=== PATIENT | female | born 1960 | race Caucasian/White ===

== ENCOUNTER 2018-03-03 12:37 | Inpatient (IN) | payer OTHER ==
[~2018-03-03] VITALS: Ht 167.6 cm; Wt 88.5 kg
[2018-03-03] MEDS ORDERED: ONDANSETRON HCL/PF 4 MG/2 ML VIAL ONE (12:48)
[2018-03-03] MEDS ORDERED: ONDANSETRON HCL/PF 4 MG/2 ML VIAL IVP ONE (13:00)
[2018-03-03] MEDS ORDERED: IV NS 0.9% 1,000 ML BAG IV ONE ×2 (13:00→14:00)
[2018-03-03 13:15] LABS: EOSINOPHILS % (AUTO) 0.5 % (0.0-6.0); HEMATOCRIT 38 % (33-45); HEMOGLOBIN 13.2 g/dL (11.5-14.8); LYMPHOCYTES # (AUTO) 0.5 /CMM (0.8-4.8); LYMPHOCYTES % (AUTO) 64.1 % (20.0-44.0); MEAN CORPUSCULAR HGB CONC 35 g/dl (31.0-36.0); MEAN CORPUSCULAR VOLUME 80 fL (82-100); MONOCYTES % (AUTO) 0.7 % (2.0-12.0); NEUTROPHILS # (AUTO) 0.3 /CMM (1.8-8.9); NEUTROPHILS % (AUTO) 33.7 % (43.0-81.0); PLATELET COUNT (AUTO) 195 /CMM (150-450); RDW COEFFICIENT OF VARIATION 12.3 (11.5-15.0); RED BLOOD CELL COUNT(AUTO) 4.77 MIL/uL (4.0-5.2)
[2018-03-03 13:23] LABS: WHITE BLOOD COUNT (AUTO) 0.8 K/uL (4.3-11.0)
[2018-03-03 13:32] LABS: CARBON DIOXIDE 22 mmol/L (21-32); CHLORIDE 96 mmol/L (98-107); CREATININE 1.3 mg/dL (0.6-1.3); GLUCOSE 156 mg/dL (74-106); POTASSIUM 3.3 mmol/L (3.5-5.1); SODIUM SERUM 132 mmol/L (136-145); UREA NITROGEN, BLOOD 13 mg/dL (7-18)
[2018-03-03 13:38] LABS: ALANINE AMINOTRANSFERASE 72 U/L (12-78); ALBUMIN 3.9 g/dL (3.4-5.0); ALKALINE PHOSPHATASE 70 U/L (46-116); ASPARTATE AMINOTRANSFERASE 49 U/L (15-37); BILIRUBIN,DIRECT 0.2 mg/dL (0.0-0.2); BILIRUBIN,TOTAL 0.9 mg/dL (0.2-1.0); LIPASE 104 U/L (73-393); TOTAL PROTEIN, SERUM 8.4 g/dL (6.4-8.2)
[2018-03-03 13:41] LABS: TROPONIN I < 0.017 ng/mL (0.00-0.056)
--- NOTE | 2018-03-03 13:59 | NUR ---
CALLED DR CHLOE BROOKS [facility] PT'S ONCOLOGIST [phone]
[2018-03-03] MEDS ORDERED: MEROPENEM 1 G in IV NS 0.9% 100 ML IV ONE (14:00)
[2018-03-03] MEDS ORDERED: VANCOMYCIN 1 GM in IV D5W 250 ML IV ONE (14:00)
--- NOTE | 2018-03-03 14:13 | NUR ---
SENT A MESSAGE TO DR DOUGLAS.
[2018-03-03 14:18] LABS: EOSINOPHILS % (MANUAL) 2 % (0-4); LYMPHOCYTES % (MANUAL) 70 % (16-48); NEUTROPHILS % (MANUAL) 28 (42-76)
--- NOTE | 2018-03-03 14:46 | NUR ---
PT IS ASSIGNED TO ICU RM#: [id number], PT IS DIAGNOSED WITH NEUTROPENIC FEVER/ DEHYDRATION, AND DR ODUGLAS IS THE ACCEPTING MD .
--- NOTE | 2018-03-03 14:57 | NUR ---
PER DR DOUGLAS, HE WANTS THE ICU BED DOWNGRADED TO MED SURG WITH REVERSE ISOLATION, AND THE NURSING POPCORN MACHINE OPERATOR WAS NOTIFIED
[2018-03-03] MEDS ORDERED: METO50TA7 PO (14:58)
[2018-03-03] MEDS ORDERED: LOSA1TAB39 PO (14:58)
[2018-03-03] MEDS ORDERED: AMLO10TA6 PO (14:58)
[2018-03-03] MEDS ORDERED: ONDA4TAB5 PO (14:58)
--- NOTE | 2018-03-03 15:00 | NUR ---
PORT ACCESSED: IV PATENT AND FLUSHING WELL.
--- NOTE | 2018-03-03 15:27 | NUR ---
NEW ROOM FOR PT IS JEMAL RM#: [id number]
[2018-03-03] MEDS ORDERED: D5W IV PRN (15:30)
[2018-03-03] MEDS ORDERED: ONDANSETRON HCL IV PRN (15:30)
[2018-03-03] MEDS: METOPROLOL SUCCINATE 50 MG TAB.SR.24H PO SCH (15:30)
[2018-03-03] MEDS ORDERED: HYDROCODONE/APAP 5/325MG 1 EACH TABLET PO ONE (15:30)
[2018-03-03] MEDS: PANTOPRAZOLE 40 MG VIAL IV SCH (15:30)
[2018-03-03] MEDS ORDERED: ACETAMINOPHEN ES 500 MG TABLET PO PRN (15:30)
[2018-03-03] MEDS ORDERED: LOPERAMIDE HCL (2 MG CAP) 2 MG CAPSULE PO ONE ×2 (16:00→22:00)
--- NOTE | 2018-03-03 16:12 | NUR ---
REPORT GIVEN TO CATHERINE SOLARES FOR [facility]
[2018-03-03 17:00] VITALS: BP 145/75
--- NOTE | 2018-03-03 17:00 | NUR ---
MS ACCOUNTS RECEIVABLE ASSOCIATE NOTE PATIENT CAME FROM HOME. CAME TO THE ER FOR NAUSEA AND DIARRHEAx3 DAYS, HAD FIRST ROUND OF CHEMOTHERAPY LAST Saturday02/24/[address] BROOKS OUTSIDE ONCOLOGIST. ALERT AND ORIENTED X4, NO PAIN AT THIS TIME BUT PATIENT STATES ABDOMINAL DISCOMFORT AND DOES NOT WANT PAIN MEDICATION AT THIS TIME. NO SOB OR DISTRESS NOTED. ABLE TO COMMUNICATE NEEDS. IV ON RIGHT WRIST 20G INTACT AND PATENT NO REDNESS OR SWELLING NOTED, RIGHT SIDE CHEST PORT-A-CATH. NO BLOOD PRESSURE ON RIGHT ARM DUE TO RIGHT LUMPECTOMY IN 2009. FULL CODE. REVERSE ISOLATION. AMBULATORY WITH NO SKIN ISSUES PRESENT. ALLERGY TO IODINE. WILL CONTINUE TO MONITOR THROUGHOUT SHIFT
[2018-03-03] MEDS ORDERED: FEE PK DOSING 1 MIN EA MC ONE (17:18)
[2018-03-03] MEDS: TBO-FILGRASTIM 480 MCG/0.8 ML ML SQ SCH (17:48)
--- NOTE | 2018-03-03 18:47 | NUR ---
MS RN CLOSING NOTE PATIENT RESTING COMFORTABLY AT THIS TIME. NO PAIN NOTED. NO SOB OR DISTRESS NOTED. CALL LIGHT WITHIN REACH AT ALL TIMES. SAFETY MEASURES IMPLEMENTED. ABLE TO COMMUNICATE NEEDS. IV AND PORT-A-CATH INTACT AND PATENT NO REDNESS OR SWELLING NOTED. ALL DUE MEDICATIONS GIVEN ORDERED. ALL NURSING CARE NEEDS ATTENDED TO NEEDED. LABS IN AM. REVERSE ISOLATION. WILL ENDORSE TO [employer]RIBUTION CLERK NURSE FOR [facility]
[2018-03-03 20:00] VITALS: BP 146/73
--- NOTE | 2018-03-03 20:00 | NUR ---
JEMAL RN NOTES RECEIVED BEDSIDE REPORT FROM AM NURSE. PATIENT IS A/O X4, HAD FIRST ROUND OF CHEMOTHERAPY LAST Saturday02/24/[address] BROOKS OUTSIDE ONCOLOGIST. NO PAIN AT THIS TIME BUT PATIENT STATES ABDOMINAL DISCOMFORT,NO SOB OR DISTRESS NOTED. ABLE TO COMMUNICATE NEEDS. IV ON RIGHT WRIST 20G INTACT AND PATENT NO REDNESS OR SWELLING NOTED, RIGHT SIDE CHEST PORT-A-CATH. NO BLOOD PRESSURE ON RIGHT ARM DUE TO RIGHT LUMPECTOMY IN 2009. FULL CODE. REVERSE ISOLATION. AMBULATORY WITH NO SKIN ISSUES PRESENT. ALLERGY TO IODINE. WILL CONTINUE TO MONITOR THROUGHOUT SHIFT.
[2018-03-03 21:00] VITALS: BP 146/73
--- NOTE | 2018-03-03 22:00 | NUR ---
JEMAL RN NOTES PATIENT IS COMPLAINING OF NAUSEA AND DIARRHEA. MEDICATIONS ARE ADMINISTERED IN TIMELY MANNERS AND COMFORT MEASURES ARE IMPLEMENTED. WILL CONT. TO MONITOR.
[2018-03-03] MEDS ORDERED: IV PREMIX D5 1/2NS + KCL 1,000 ML IV ONE (22:34)
[2018-03-03] MEDS: Potassium Chloride 20 MEQ in IV D5/0.45 NACL 1,000 ML IV PRN (22:44)
[2018-03-04] MEDS: VANCOMYCIN 1 GM in IV NS 0.9% 250 ML IV SCH ×2 (03:20→15:09)
[2018-03-04 04:00] VITALS: BP 118/67
[2018-03-04 05:00] VITALS: BP 118/67
[2018-03-04 06:20] LABS: BASOPHILS % (AUTO) 0.8 % (0.0-2.0); EOSINOPHILS % (AUTO) 1.6 % (0.0-6.0); HEMATOCRIT 32 % (33-45); HEMOGLOBIN 11.3 g/dL (11.5-14.8); LYMPHOCYTES # (AUTO) 0.6 /CMM (0.8-4.8); LYMPHOCYTES % (AUTO) 62.2 % (20.0-44.0); MEAN CORPUSCULAR HGB CONC 36 g/dl (31.0-36.0); MEAN CORPUSCULAR VOLUME 81 fL (82-100); MONOCYTES # (AUTO) 0.1 /CMM (0.1-1.30); MONOCYTES % (AUTO) 6.6 % (2.0-12.0); NEUTROPHILS # (AUTO) 0.3 /CMM (1.8-8.9); NEUTROPHILS % (AUTO) 28.8 % (43.0-81.0); PLATELET COUNT (AUTO) 148 /CMM (150-450); RED BLOOD CELL COUNT(AUTO) 3.91 MIL/uL (4.0-5.2)
[2018-03-04 06:28] LABS: CALCIUM, SERUM 8.3 mg/dL (8.5-10.1); CREATININE 0.9 mg/dL (0.6-1.3); POTASSIUM 3.6 mmol/L (3.5-5.1)
[2018-03-04 06:39] LABS: ALBUMIN 3.1 g/dL (3.4-5.0); BILIRUBIN,TOTAL 0.6 mg/dL (0.2-1.0); MAGNESIUM 1.8 mg/dL (1.8-2.4); TOTAL PROTEIN, SERUM 6.7 g/dL (6.4-8.2)
[2018-03-04 07:17] LABS: WHITE BLOOD COUNT (AUTO) 0.9 K/uL (4.3-11.0)
[2018-03-04 08:00] VITALS: BP 122/70
--- NOTE | 2018-03-04 08:00 | NUR ---
MS RN NOTES PATIENT IN BED RESTING NO SOB OR ACUTE DISTRESS NOTED. PATIENT ALERT, ORIENTED X4 IN BED RESTING. WITH PORT A CATH ACCESED ON RIGHT UPPER CHEST INTACT PATENT. RUNNING PRESCRIBED FLUIDS. BED IN LOW LOCKED POSITION. CALL LIGHT WITHIN REACH. WILL CONTINUE TO MONITOR.
[2018-03-04] MEDS: METOPROLOL SUCCINATE 50 MG TAB.SR.24H PO SCH (09:00)
[2018-03-04] MEDS ORDERED: MEROPENEM 1 G in IV NS 0.9% 100 ML IV SCH (09:00)
[2018-03-04] MEDS: PANTOPRAZOLE 40 MG VIAL IV SCH (09:00)
[2018-03-04] MEDS ORDERED: ONDANSETRON HCL/PF 4 MG/2 ML VIAL IVP PRN (09:30)
--- NOTE | 2018-03-04 09:30 | NUR ---
MS RN NOTES PATIENT SEEN AND EVALUATED BY DR. DOUGLAS STATES PATIENT NEEDS TO BE TRANSFERRED TO [facility] DUE TO INSURANCE PURPOSES. NOTED AND CARRIED OUT.
[2018-03-04] MEDS: Potassium Chloride 20 MEQ in IV D5/0.45 NACL 1,000 ML IV PRN (10:59)
[2018-03-04] MEDS ORDERED: AMLODIPINE BESYLATE 10 MG TABLET PO SCH (15:30)
[2018-03-04 16:00] VITALS: BP 140/71
[2018-03-04 16:15] VITALS: BP 140/71
[2018-03-04] MEDS: TBO-FILGRASTIM 480 MCG/0.8 ML ML SQ SCH (16:34)
--- NOTE | 2018-03-04 18:00 | NUR ---
MS RN NOTES PATIENT TRANSFERRED TO [facility] VIA AMBULANCE WITH EMT. PATIENT ALERT, ORIENTED X4. DENIES ANY PAIN OR DISCOMFORT. DISCHARGE PROTOCOL FOLLOWED. PATIENT SIGNED ALL PAPERS. DISCHARGE TEACHING PROVIDED VERBALIZED UNDERSTANDING. ALL BELONGINGS ACCOUNTED FOR, BELONGING LIST SIGNED. ALL DUE MEDICATIONS ADMINISTERED ORDERED. MD AWARE OF ALL ABNORMAL LABS. PATIENT HAD 4 LOOSE STOOLS WITHIN THE SHIFT. REPORT GIVEN TO BRAD SOLARES AT [facility].
== END 2018-03-04 18:03 | DRG 249 ==
LOC: ER 12:39 → TELE1 16:57 → MEDSG1 17:33
PROVIDERS: ADMIT Internal Medicine; ATTEND Internal Medicine
DX: K52.1 Toxic gastroenteritis and colitis (principal); C50.919 Malignant neoplasm of unspecified site of unspecified female breast; E86.0 Dehydration; I10 Essential (primary) hypertension; E87.6 Hypokalemia; D72.819 Decreased white blood cell count, unspecified; Y92.009 Unspecified place in unspecified non-institutional (private) residence as the place of occurrence of the external cause; T45.1X5A Adverse effect of antineoplastic and immunosuppressive drugs, initial encounter; Z85.3 Personal history of malignant neoplasm of breast; Z82.49 Family history of ischemic heart disease and other diseases of the circulatory system; Z91.041 Radiographic dye allergy status; Z79.899 Other long term (current) drug therapy
CPT/HCPCS: 36415; 71045-TC; 80048-TC; 80053-TC; 80076-TC; 83605-TC; 83690-TC; 83735-TC; 84484-TC; 85025-TC; 87040-TC; 87081-TC; A4606; C9113; J1447; J2185; J2405; J3370; J3480; J3490; J7030; J7040; J7050; J7060; Z7610